=== PATIENT | male | born 1995 | race African-American/Black ===

== ENCOUNTER → 2022-07-09 11:06 | Outpatient (CLI) | payer OTHER, SELFPAY ==
--- NOTE | 2022-07-09 | DI.MRI.S_ITS ---
PROCEDURE: MR CHEST WO CON INDICATIONS: Pain in right shoulder TECHNIQUE: Axial and oblique coronal T1 spin echo and T2 spin echo with fat saturation, sagittal T1 spin echo and STIR acquired through the affected chest wall. COMPARISON: None. FINDINGS: Image quality: Diagnostic. Respiratory motion is noted. Soft tissues: There is mild edema within deep portion of lateral right pectoralis major muscle concerning for low-grade muscle strain/partial-thickness tear. No full-thickness muscle or tendon rupture. The pectoralis major tendon appears intact as it inserts onto the humeral shaft along the lateral lip of the intertubercular groove. The nearby quadrilateral space appears normal on axial images. No soft tissue fluid collections. Other visualized muscles appear intact, including the pectoralis minor and coracobrachialis. There is no gross full-thickness rotator cuff tendon rupture. Bones: Visualized bony structures of the chest wall and upper arm appear intact, without focal marrow edema. IMPRESSION: 1. Finding is suggestive of very low-grade strain/intrasubstance partial-thickness tear involving the portion of lateral right pectoralis major muscle. No full-thickness muscle or tendon rupture. 2. No marrow signal abnormality is seen in visualized chest wall osseous structures. 3. No gross full-thickness rotator cuff tendon rupture. Dictated by: John Rios M.D. on 07/09/2022 at 15:46 Approved by: John Rios M.D. on 07/09/2022 at 15:51
== END ==
PROVIDERS: Referring Provider Student in an Organized Health Care Education/Training Program; Visit Provider Student in an Organized Health Care Education/Training Program
DX: M25.511 Pain in right shoulder (principal)
CPT/HCPCS: 71550